=== PATIENT | male | born 1955 | race Caucasian/White ===

== ENCOUNTER 2021-01-27 08:29 | Day surgery (SDC) | payer BC ==
[~2021-01-27] VITALS: Ht 177.8 cm; Wt 100.9 kg
[2021-01-27] VITALS (16 sets, daily range): BP systolic 90–121; BP diastolic 64–83; PULSE 49–95; TEMP 97.8
[2021-01-27] MEDS ORDERED: ALLEGRA 180MG180 MG PO (10:01)
[2021-01-27] MEDS ORDERED: ASPIRIN E.C. 8181 MG PO (10:01)
[2021-01-27] MEDS ORDERED: COZAAR 50MG50 MG/TAB PO (10:01)
[2021-01-27] MEDS ORDERED: LIPITOR 10MG10 MG PO ×2 (10:02→12:28)
[2021-01-27] MEDS ORDERED: FLOMAX 0.40.4 MG/CAP PO (10:02)
[2021-01-27] MEDS ORDERED: THE MEDICINE S200 M2 PO (10:03)
[2021-01-27] MEDS ORDERED: ZYRTEC 10MG10 MG PO (10:04)
[2021-01-27] MEDS ORDERED: LOTRISONE CREAM15 GM TP (10:04)
[2021-01-27 10:17] LABS: HEMATOCRIT 43.3 % (42.0-52.0); HEMOGLOBIN 14.3 g/dl (13.5-18.0); MEAN CELL VOLUME 87 fl (80.0-100.0); MEAN CORPUSCULAR HEMOGLOBIN 29 pg (27.0-31.0); MEAN CORPUSCULAR HGB CONC 33 g/dl (33.0-37.0); MEAN PLATELET VOLUME 9.9 fl (7.4-10.4); PLATELET COUNT 151 K/mm3 (130-400); REDCELL DISTRIBUTION WIDTH-CV 13.2 % (11.5-14.5)
[2021-01-27 10:24] LABS: INR 1.1 (0.8-3.0); PROTHROMBIN TIME 11.9 SECONDS (9.7-12.8)
[2021-01-27 10:27] LABS: PARTIAL THROMBOPLASTIN TIME 31.5 SECONDS (26.0-37.0)
[2021-01-27 10:32] LABS: CALCIUM 9.1 mg/dL (8.4-10.2); CREATININE, serum 1.29 (0.66-1.25); POTASSIUM 4.2 mmol/L (3.4-5.0)
[2021-01-27] MEDS ORDERED: TOPROL XL 25MG25 MG PO (12:29)
--- NOTE | 2021-01-27 12:33 | NUR ---
PT BACK FROM [facility] [employer] [facility], PT IS AWAKE, DROWSY, PWD WITH REG AND UNLABORED RESPS. TR BAND TO RT WRIST, CMS INTACT DISTAL. NSR ON MONITOR, TELEMETRY EMPLOYED. AT BS. CALL LIGHT IN REACH. WCTM
--- NOTE | 2021-01-27 15:15 | NUR ---
TR band has been deflated with no problem, site dressed as usual with bandaid, folded 2x2 and coban. cms intact distal. Pt became lightheaded while still resting on cot, hr 40's sinus jael, sbp 90. Pt was returned to supine position, and after consulting Dr. Palacios, IV fluids were opened up with plan to infuse remainder of 1/2 NS, there were approx 800 cc left in bag. Pt reported some improvement with return to supine position, but still appears slightly pale. WCTM.
--- NOTE | 2021-01-27 18:09 | NUR ---
Pt feeling better after fluid bolus, and eating 2nd meal. Rt wrist site looks good, no changes. I have reviewed rx/dc and fu instructions with pt and his . No remaining concerns at time of departure. Pt has been up and ambulatory in room with steady gait. Pt did report "floaters" in his eye earlier that have resolved at this time, and pt did report a feeling like a "band" around his head when he first got up, but this also has resolved. Pt has negative neuro exam. IV is dc'd with cath intact, dressing applied. Pt to exit via wheelchair.
== END 2021-01-27 18:09 | disposition home or self-care (01) ==
LOC: COL.CAR 08:29
PROVIDERS: Internal Medicine Cardiovascular Disease
DX: I25.10 Atherosclerotic heart disease of native coronary artery without angina pectoris (principal); I10 Essential (primary) hypertension; Z88.8 Allergy status to other drugs, medicaments and biological substances; Z20.822 Contact with and (suspected) exposure to COVID-19
CPT/HCPCS: C1769; C1887; J0153; J1644; J2250; J3010; Q9967